=== PATIENT | female | born 1950 | race Caucasian/White ===

== ENCOUNTER → 2016-12-04 | Outpatient (CLI) | payer BC, OTHER ==
[~2016-12-04] MED LIST: ADVIN25050 INH; AMLO-110 PO; ATR25 PO; BIOTIN PO; CLTP PO; DRV100 PO; EFF50 PO; HYDC25 PO; MEDLIST; MULT-506 PO; OMEG10007 PO; PRT/20 PO; SNQ25 PO; XNX25 PO
--- NOTE | 2016-12-04 15:53 | MAMMOGRAPHY REPORT ---
BILATERAL DIGITAL SCREENING MAMMOGRAM TOMOSYNTHESIS WITH CAD: 12/04/2016 TECHNIQUE: Breast tomosynthesis in addition to standard 2D mammography was performed. Current study was also evaluated with a Computer Aided Detection (CAD) system. COMPARISON: Comparison is made to exams dated: 12/03/2015 mammogram, 11/15/2014 mammogram, 10/05/2013 mammogram, 10/04/2012 mammogram, 09/03/2011 mammogram, and 09/02/2010 mammogram - [facility]. BREAST COMPOSITION: There are scattered areas of fibroglandular density in both breasts. FINDINGS: No suspicious masses, calcifications, or areas of architectural distortion are noted in e ither breast. There has been no significant interval change compared to prior exams. Two clusters o f coarse heterogeneous calcifications in the left upper outer quadrant are not significantly changed ; these appear similar to previously biopsied calcifications which yielded benign pathology. A biop sy marker clip is again noted in the left upper outer quadrant. IMPRESSION: ACR BI-RADS CATEGORY 2: BENIGN There is no mammographic evidence of malignancy. A 1 year screening mammogram is recommended. The p atient will receive written notification of the results. Approximately 10% of breast cancers are not detected with mammography. A negative mammographic repor t should not delay biopsy if a clinically suggestive mass is present. Carla Mcconnell M.D. /:12/04/2016 14:09:51 Bilingual Student Tutor: Vonda SHAFER)(M), [facility] letter sent: Normal 1/2 BI-RADS Code: ACR BI-RADS Category 2: Benign
== END | disposition home or self-care (01) ==
LOC: C.MAMM 09:00
PROVIDERS: ATTEND Obstetrics & Gynecology
DX: Z12.31 Encounter for screening mammogram for malignant neoplasm of breast (principal)